=== PATIENT | male | born 1940 | race Caucasian/White ===

== ENCOUNTER 2019-05-27 09:38 | Emergency (ER) | payer BC ==
[2019-05-27 09:46] VITALS: BP 152/59; PULSE 71; TEMP 97.8; BMI 20.8
--- NOTE | 2019-05-27 10:27 | PDOC ---
History of Present Illness - General Chief Complaint: Injury Stated Complaint: HAND INJURY Time Seen by Provider: 05/27/19 09:59 History Source: Patient Exam Limitations: Clinical Condition - History of Present Illness Initial Comments: 05/27/19 11:03 Patient with no significant past medical history not on anticoagulation therapy presents for evaluation of multiple abrasions to right hand status post slip on a curbside bracing himself with his right hand causing multiple abrasions. Patient does not recall last tetanus vaccine. Denies hitting head or loss of consciousness, dizziness. Denies any other symptoms Occurred: reports: just prior to arrival Past History - Past Medical History Allergies/Adverse Reactions: Allergies Allergy/AdvReac Type Severity Reaction Status Date / Time No Known Allergies Allergy Verified 05/27/19 09:41 Home Medications: Ambulatory Orders Diltiazem Cd [Cardizem Cd -] 240 mg PO DAILY 05/21/16 Glipizide 10 mg PO DAILY 05/21/16 Losartan Potassium 100 mg PO DAILY 05/21/16 Simvastatin 40 mg PO HS 05/21/16 Linagliptin [Tradjenta] 1 tab PO DAILY 05/27/19 COPD: No Dialysis: Yes HTN: Yes Hypercholesterolemia: Yes - Psycho Social/Smoking Cessation Hx Smoking History: Unknown if ever smoked Have you smoked in the past 12 months: No Hx Alcohol Use: No Drug/Substance Use Hx: No Review of Systems - Review of Systems Able to Perform ROS?: Yes Is the patient limited Romanian proficient: No Constitutional: No: Malaise, Weakness HEENTM: No: Symptoms Reported Respiratory: No: Symptoms reported Cardiac (ROS): No: Symptoms Reported ABD/GI: No: Nausea, Vomiting Musculoskeletal: Yes: Symptoms Reported, See HPI, Muscle Pain (pal of hand) Integumentary: No: Symptoms Reported Neurological: No: Symptoms reported All Other Systems: Reviewed and Negative *Physical Exam - Vital Signs Last Vital Signs Temp Pulse Resp BP Pulse Ox 97.8 F 71 18 152/59 L 98 05/27/19 09:45 05/27/19 09:45 05/27/19 09:45 05/27/19 09:45 05/27/19 09:45 - Physical Exam Comments: 05/27/19 11:06 GENERAL: Well developed, well nourished. Awake and alert. No acute distress. CARDIOVASCULAR: Regular rate and rhythm. No murmurs, rubs, or gallops. PULMONARY: No evidence of respiratory distress. MUSCULOSKELETAL : mild tenderness over plantar aspect of right hand over multiple abrasions to palm of right hand. No bony deformities SKIN: Warm and dry. Normal capillary refill. Multiple superficial abrasions to right hand NEUROLOGICAL: Alert, awake, appropriate. No motor deficits in the lower extremities. Gait is normal without ataxia. PSYCHIATRIC: Cooperative. Good eye contact. Appropriate mood and affect. General Appearance: Yes: Nourished, Appropriately Dressed. No: Apparent Distress Medical Decision Making - Medical Decision Making 05/27/19 11:05 Patient with no significant past medical history not on anticoagulation therapy presents for evaluation of multiple abrasions to right hand status post slip on a curbside bracing himself with his right hand causing multiple abrasions. Patient does not recall last tetanus vaccine. Denies hitting head or loss of consciousness, dizziness. Denies any other symptoms Exam significant for 1 cm area of abrasion to palmar aspect of hyperthenar of right wrist. Another superficial abrasions to dorsal aspect of PIP joint of fifth and fourth fingers with minimal bleeding. Multiple superficial abrasions to plantar aspect of right hand. Head atraumatic. Wound cleaned with Betadine and bacitracin applied to abrasions. Tetanus vaccine given. Patient stable for discharge with occasional home wound care with dressing changes twice daily and apply home bacitracin. Patient voiced understanding of home wound care and stable for discharge. Discharge - Discharge Information Problems reviewed: Yes Clinical Impression/Diagnosis: Hand abrasion, non-infected Fall Qualifiers: Encounter type: initial encounter Qualified Code(s): W19.XXXA - Unspecified fall, initial encounter Disposition: HOME - Admission No - Follow up/Referral Referrals: Jareth Maher MD [Staff Physician] - - Patient Discharge Instructions Patient Printed Discharge Instructions: DI for Abrasion Additional Instructions: Keep wound clean and dry for the next 24 hours. Apply bacitracin to wound twice a day until healed. Follow-up with primary care as needed. - Post Discharge Activity
[2019-05-27] MEDS ORDERED: DIPHTH,PERTUSS(ACELL),TET 0.5 ML DISP.SYRIN IM ONE ×2 (10:43→10:44)
== END 2019-05-27 11:03 | disposition home or self-care (01) ==
LOC: JERFT 09:38
PROC: 3E0234Z Introduction of Serum, Toxoid and Vaccine into Muscle, Percutaneous Approach (ICD-10-PCS; principal; 2019-05-27)
DX: S60.511A Abrasion of right hand, initial encounter (principal); W18.09XA Striking against other object with subsequent fall, initial encounter; Y93.89 Activity, other specified; Y92.410 Unspecified street and highway as the place of occurrence of the external cause; E11.9 Type 2 diabetes mellitus without complications; I10 Essential (primary) hypertension
CPT/HCPCS: 90471; 90715; 99281-25

== ENCOUNTER 2020-10-16 10:44 | Inpatient (IN) | payer BC ==
[2020-10-16] MEDS ORDERED: LACTATED RINGERS SOLUTION 1000 ML INFUS.BAG IV ONE (13:11)
[2020-10-16 14:00] LABS: BASO % 0.2 % (0-2.0); EOS % 0.6 % (0-4.5); HEMATOCRIT 32.9 % (35.4-49); HEMOGLOBIN 11.8 GM/dL (11.7-16.9); LYMPH % 39.3 % (8-40); MCH 31.5 pg (25.7-33.7); MEAN CELL VOLUME 87.6 fl (80-96); MEAN PLT VOLUME 7.5 fl (7.5-11.1); MONO % 3.8 % (3.8-10.2); NEUT % 56.1 % (42.8-82.8); PLATELET COUNT 152 K/MM3 (134-434); RBC 3.76 M/mm3 (4.00-5.60); RDW 13.3 % (11.9-15.9); WHITE BLOOD COUNT 10.6 K/mm3 (4.0-10.0)
[2020-10-16 14:30] LABS: CHLORIDE 99 mmol/L (98-107); POTASSIUM 3.9 mmol/L (3.5-5.1); SODIUM 133 mmol/L (136-145)
[2020-10-16 14:32] LABS: ALBUMIN 3.8 g/dl (3.4-5.0); ANION GAP 8 MMOL/L (8-16); BLOOD UREA NITROGEN 26.4 mg/dL (7-18); CALCIUM 9.6 mg/dL (8.5-10.1); CO2 26 mmol/L (21-32); GLUCOSE,RANDOM 181 mg/dL (74-106); MAGNESIUM 2.1 mg/dL (1.8-2.4)
[2020-10-16 14:36] LABS: SGOT/AST 44 U/L (15-37); SGPT/ALT 49 U/L (13-61)
[2020-10-16 14:36] LABS: PH,URINE 5.5 (5.0-8.0); URINE APPEARANCE CLEAR; URINE BILIRUBIN NEGATIVE (NEGATIVE); URINE COLOR YELLOW; URINE GLUCOSE (UA) NEGATIVE (NEGATIVE); URINE KETONE 1+ (NEGATIVE); URINE LEUK ESTERASE NEGATIVE (NEGATIVE); URINE NITRITE NEGATIVE (NEGATIVE); URINE PROTEIN TRACE (NEGATIVE); URINE UROBILINOGEN 0.2 mg/dL (0.2-1.0)
[2020-10-16 14:37] LABS: BILIRUBIN,TOTAL 0.7 mg/dL (0.2-1); CREATININE 1.2 mg/dL (0.55-1.3); TOT PROT 7.1 g/dl (6.4-8.2)
[2020-10-16 14:39] LABS: ALK PHOS 77 U/L (45-117)
[2020-10-16] MEDS ORDERED: ACETAMINOPHEN 325 MG TABLET (FP) PO PRN (16:30)
[2020-10-16] MEDS ORDERED: LOSARTAN POTASSIUM 50 MG TABLET ONE (16:33)
[2020-10-16] MEDS: LOSARTAN POTASSIUM 50 MG TABLET PO SCH (16:37)
[2020-10-16] MEDS: INSULIN SLIDING SCALE (NOVOLOG) 1 VIAL SQ SCH (16:56)
[2020-10-16] MEDS ORDERED: hydrALAZINE HCL 25 MG TABLET (FP) PO ONE (20:17)
[2020-10-16] MEDS ORDERED: hydrALAZINE HCL 25 MG TABLET (FP) ONE (21:09)
[2020-10-16] MEDS ORDERED: ATORVASTATIN CA 20 MG TABLET (FP) ONE (21:10)
[2020-10-16] MEDS ORDERED: ATORVASTATIN CA 20 MG TABLET (FP) PO SCH (22:00)
[2020-10-17 00:39] VITALS: BMI 20.5
[2020-10-17] MEDS: INSULIN SLIDING SCALE (NOVOLOG) 1 VIAL SQ SCH (07:19)
[2020-10-17 07:32] LABS: BASO % 0.3 % (0-2.0); EOS % 1.8 % (0-4.5); HEMOGLOBIN 13.7 GM/dL (11.7-16.9); LYMPH % 49.7 % (8-40); MCH 31.4 pg (25.7-33.7); MCHC 36.1 g/dl (32.0-35.9); MEAN PLT VOLUME 7.4 fl (7.5-11.1); MONO % 4.6 % (3.8-10.2); NEUT % 43.6 % (42.8-82.8); PLATELET COUNT 195 K/MM3 (134-434); RBC 4.36 M/mm3 (4.00-5.60); RDW 13.4 % (11.9-15.9); WHITE BLOOD COUNT 11.5 K/mm3 (4.0-10.0)
[2020-10-17 07:56] LABS: POTASSIUM 3.5 mmol/L (3.5-5.1)
[2020-10-17 08:03] LABS: CALCIUM 8.9 mg/dL (8.5-10.1)
[2020-10-17 08:04] LABS: ALBUMIN 3.5 g/dl (3.4-5.0)
[2020-10-17 08:06] LABS: BILIRUBIN,TOTAL 0.7 mg/dL (0.2-1); TOT PROT 6.4 g/dl (6.4-8.2)
[2020-10-17 08:07] LABS: CREATININE 1.2 mg/dL (0.55-1.3)
[2020-10-17] MEDS: LOSARTAN POTASSIUM 50 MG TABLET PO SCH (09:10)
[2020-10-17] MEDS ORDERED: ENOXAPARIN NA (PORCINE) 40 MG/0.4 ML DISP.SYRIN SQ SCH (10:00)
[2020-10-17] MEDS ORDERED: amLODIPine BESYLATE 2.5 MG TABLET (FP) PO SCH (11:45)
[2020-10-17 15:39] VITALS: BP 151/70; PULSE 82; TEMP 97.8
== END 2020-10-17 17:30 | disposition home or self-care (01) | DRG 866 ==
LOC: JER 10:44 → JERBED 17:07 → J4W 23:28
PROVIDERS: ADMIT Internal Medicine; ATTEND Internal Medicine
DX: T88.1XXA Other complications following immunization, not elsewhere classified, initial encounter (principal); R42 Dizziness and giddiness; R55 Syncope and collapse; R53.83 Other fatigue; R00.1 Bradycardia, unspecified; E86.0 Dehydration; I10 Essential (primary) hypertension; E11.9 Type 2 diabetes mellitus without complications; Z79.84 Long term (current) use of oral hypoglycemic drugs; E78.5 Hyperlipidemia, unspecified; Y84.8 Other medical procedures as the cause of abnormal reaction of the patient, or of later complication, without mention of misadventure at the time of the procedure
CPT/HCPCS: 36415; 71045-TC-FY; 80053; 80061; 81003; 82550; 82962; 83036; 83721; 83735; 84443; 84484; 85025; 87086; 93005; 93010; 93880-TC; 99285-25; C9803; U0003

== ENCOUNTER 2021-04-06 15:21 | Inpatient (IN) | payer BC, OTHER ==
[2021-04-06] MEDS ORDERED: LACTATED RINGERS SOLUTION 1,000 ML IV STA (16:48)
[2021-04-06] MEDS ORDERED: LOPERAMIDE HCL 1 MG/5 ML UNIT DOSE CUP PO ONE (16:55)
[2021-04-06] MEDS ORDERED: LOPERAMIDE HCL 1 MG/7.5 ML LIQUID PO ONE (17:45)
[2021-04-06 17:46] LABS: BASO % 0.5 % (0-2.0); EOS % 0.1 % (0-4.5); HEMATOCRIT 35.8 % (35.4-49); HEMOGLOBIN 12.6 GM/dL (11.7-16.9); LYMPH % 39.1 % (8-40); MCH 30.8 pg (25.7-33.7); MCHC 35.3 g/dl (32.0-35.9); MEAN CELL VOLUME 87.2 fl (80-96); MEAN PLT VOLUME 7.4 fl (7.5-11.1); MONO % 4.8 % (3.8-10.2); NEUT % 55.5 % (42.8-82.8); PLATELET COUNT 211 10^3/uL (134-434); RDW 13.6 % (11.9-15.9); WHITE BLOOD COUNT 18.4 K/mm3 (4.0-10.0)
[2021-04-06 18:07] LABS: CALCIUM 9.2 mg/dL (8.5-10.1)
[2021-04-06 18:08] LABS: BLOOD UREA NITROGEN 38.3 mg/dL (7-18)
[2021-04-06 18:11] LABS: CREATININE 1.7 mg/dL (0.55-1.3)
[2021-04-06 18:13] LABS: BILIRUBIN,TOTAL 1.1 mg/dL (0.2-1); TOT PROT 6.9 g/dl (6.4-8.2)
[2021-04-06] MEDS ORDERED: LACTATED RINGERS SOLUTION 1000 ML INFUS.BAG IV ONE (18:41)
[2021-04-06] MEDS ORDERED: POTASSIUM CHLORIDE TABS 20 MEQ TABLET.ER (FP) PO ONE ×2 (18:41→19:09)
[2021-04-06] MEDS ORDERED: MEMANTINE HCL 10 MG TABLET (FP) PO ONE (20:00)
[2021-04-06 20:48] LABS: EPI CELLS 1 /uL (0-25.1); HYALINE CASTS 0 /uL (0-3.1); PH,URINE 5.5 (5.0-8.0); URINE APPEARANCE CLEAR; URINE BACTERIA 1 /uL (0-1359); URINE BILIRUBIN NEGATIVE (NEGATIVE); URINE COLOR YELLOW; URINE GLUCOSE (UA) 1+ (NEGATIVE); URINE KETONE NEGATIVE (NEGATIVE); URINE LEUK ESTERASE NEGATIVE (NEGATIVE); URINE NITRITE NEGATIVE (NEGATIVE); URINE PROTEIN NEGATIVE (NEGATIVE); URINE RBC 1 /uL (0-23.9); URINE UROBILINOGEN 0.2 mg/dL (0.2-1.0); URINE WBC 3 /uL (0-25.8)
[2021-04-06] MEDS ORDERED: CEFTRIAXONE 1,000 MG in DEXTROSE 5%-WATER - 50 ML IVPB ONE (23:25)
[2021-04-06] MEDS ORDERED: DEXTROSE 5%-0.45% SALINE 1,000 ML IV SCH (23:30)
[2021-04-06] MEDS ORDERED: CEFTRIAXONE 1 GM/50 ML BAG ONE (23:35)
[2021-04-06] MEDS ORDERED: CEFTRIAXONE 1 GM in DEXTROSE 5%-WATER - 50 ML IVPB ONE (23:44)
[2021-04-07 06:24] LABS: HEMATOCRIT 34.1 % (35.4-49); HEMOGLOBIN 12.2 GM/dL (11.7-16.9); MCH 31.4 pg (25.7-33.7); MCHC 35.9 g/dl (32.0-35.9); MEAN CELL VOLUME 87.5 fl (80-96); MEAN PLT VOLUME 7.7 fl (7.5-11.1); PLATELET COUNT 188 10^3/uL (134-434); RDW 13.4 % (11.9-15.9); WHITE BLOOD COUNT 13.7 K/mm3 (4.0-10.0)
[2021-04-07 06:36] LABS: ALBUMIN 3.3 g/dl (3.4-5.0); BLOOD UREA NITROGEN 25.4 mg/dL (7-18); CALCIUM 8.6 mg/dL (8.5-10.1); MAGNESIUM 2.2 mg/dL (1.8-2.4)
[2021-04-07 06:40] LABS: CREATININE 1.2 mg/dL (0.55-1.3)
[2021-04-07 06:41] LABS: BILIRUBIN,TOTAL 0.6 mg/dL (0.2-1); TOT PROT 5.8 g/dl (6.4-8.2)
[2021-04-07 09:23] LABS: ANISOCYTOSIS 1+; MACROCYTOSIS 0; PLATELET ESTIMATE NORMAL
[2021-04-07] MEDS: MEMANTINE HCL 10 MG TABLET (FP) PO SCH (10:05)
[2021-04-07] MEDS: HEPARIN NA (PORCINE) 5,000 UNITS/ML 1ML VIAL SQ SCH (10:05)
[2021-04-07] MEDS: LOSARTAN POTASSIUM 50 MG TABLET PO SCH (10:19)
[2021-04-07] MEDS: amLODIPine BESYLATE 5 MG TABLET (FP) PO SCH (10:20)
[2021-04-07] MEDS ORDERED: HEPARIN NA (PORCINE) 5,000 UNITS/ML 1ML VIAL ONE (10:21)
[2021-04-07] MEDS ORDERED: CEFTRIAXONE 1 GM/50 ML BAG ONE (10:22)
[2021-04-07] MEDS ORDERED: DEXTROSE 5%-0.45% SALINE 1,000 ML with POTASSIUM CHLORIDE 20 MEQ IV SCH (10:37)
[2021-04-07] MEDS: CEFTRIAXONE 1 GM in DEXTROSE 5%-WATER - 50 ML IVPB SCH (10:37)
[2021-04-07] MEDS: KCL 10 MEQ IVPB 10 MEQ/100 ML INFUS.BAG IVPB SCH ×2 (11:50→12:45)
[2021-04-07] MEDS ORDERED: KCL 10 MEQ IVPB 10 MEQ/100 ML INFUS.BAG IVPB ONE ×2 (12:08→13:37)
[2021-04-07] MEDS: D5-1/2NS+20 MEQ KCL - 20 MEQ/1,000 ML INFUS.BAG IV SCH (16:01)
[2021-04-08] MEDS: MEMANTINE HCL 10 MG TABLET (FP) PO SCH ×3 (00:28→21:33)
[2021-04-08] MEDS: HEPARIN NA (PORCINE) 5,000 UNITS/ML 1ML VIAL SQ SCH ×3 (00:28→21:33)
[2021-04-08] MEDS: ATORVASTATIN CA 20 MG TABLET (FP) PO SCH ×2 (00:28→21:33)
[2021-04-08] MEDS: D5-1/2NS+20 MEQ KCL - 20 MEQ/1,000 ML INFUS.BAG IV SCH ×3 (06:27→21:52)
[2021-04-08] MEDS ORDERED: DEXTROSE 5%-WATER - 50 ML IVPB ONE (09:37)
[2021-04-08] MEDS ORDERED: cefTRIAXone SODIUM 1 GM VIAL ONE (09:37)
[2021-04-08] MEDS: CEFTRIAXONE 1 GM in DEXTROSE 5%-WATER - 50 ML IVPB SCH (09:44)
[2021-04-08] MEDS: LOSARTAN POTASSIUM 50 MG TABLET PO SCH (11:47)
[2021-04-08] MEDS: amLODIPine BESYLATE 5 MG TABLET (FP) PO SCH (11:48)
[2021-04-08 22:43] VITALS: PULSE 66
[2021-04-09] VITALS: BMI 20.2
[2021-04-09 09:06] LABS: HEMATOCRIT 31.7 % (35.4-49); HEMOGLOBIN 11.4 GM/dL (11.7-16.9); MCH 31.7 pg (25.7-33.7); MEAN PLT VOLUME 7.5 fl (7.5-11.1); PLATELET COUNT 182 10^3/uL (134-434); RDW 13.5 % (11.9-15.9); WHITE BLOOD COUNT 8.1 K/mm3 (4.0-10.0)
[2021-04-09 09:15] VITALS: BP 155/69; TEMP 98.2
[2021-04-09] MEDS ORDERED: DEXTROSE 5%-WATER - 50 ML IVPB ONE (09:19)
[2021-04-09] MEDS ORDERED: cefTRIAXone SODIUM 1 GM VIAL ONE (09:19)
[2021-04-09] MEDS: LOSARTAN POTASSIUM 50 MG TABLET PO SCH (09:23)
[2021-04-09] MEDS: amLODIPine BESYLATE 5 MG TABLET (FP) PO SCH (09:23)
[2021-04-09] MEDS: MEMANTINE HCL 10 MG TABLET (FP) PO SCH (09:23)
[2021-04-09] MEDS: HEPARIN NA (PORCINE) 5,000 UNITS/ML 1ML VIAL SQ SCH (09:23)
[2021-04-09] MEDS: CEFTRIAXONE 1 GM in DEXTROSE 5%-WATER - 50 ML IVPB SCH (09:23)
[2021-04-09 09:31] LABS: ALBUMIN 2.8 g/dl (3.4-5.0); BLOOD UREA NITROGEN 15.8 mg/dL (7-18); CALCIUM 8.1 mg/dL (8.5-10.1)
[2021-04-09 09:34] LABS: CREATININE 1.1 mg/dL (0.55-1.3)
[2021-04-09 09:35] LABS: BILIRUBIN,TOTAL 0.4 mg/dL (0.2-1); TOT PROT 5.1 g/dl (6.4-8.2)
[2021-04-09] MEDS: D5-1/2NS+20 MEQ KCL - 20 MEQ/1,000 ML INFUS.BAG IV SCH (11:24)
[2021-04-09] MEDS ORDERED: POTASSIUM CHLORIDE TABS 20 MEQ TABLET.ER (FP) PO ONE (11:45)
[2021-04-09 14:20] LABS: ANISOCYTOSIS 0; MACROCYTOSIS 0; PLATELET ESTIMATE NORMAL
== END 2021-04-09 14:34 | disposition home or self-care (01) | DRG 391 ==
LOC: JER 15:21 → JERBED 23:40 → J6S 04-07 23:02
PROVIDERS: ADMIT Internal Medicine; ATTEND Internal Medicine
DX: K52.9 Noninfective gastroenteritis and colitis, unspecified (principal); E43 Unspecified severe protein-calorie malnutrition; N17.9 Acute kidney failure, unspecified; J98.11 Atelectasis; I10 Essential (primary) hypertension; E11.9 Type 2 diabetes mellitus without complications; Z68.20 Body mass index [BMI] 20.0-20.9, adult; R63.0 Anorexia; E86.0 Dehydration; E78.5 Hyperlipidemia, unspecified; G30.9 Alzheimer's disease, unspecified; F02.80 Dementia in other diseases classified elsewhere, unspecified severity, without behavioral disturbance, psychotic disturbance, mood disturbance, and anxiety; K59.09 Other constipation
CPT/HCPCS: 36415; 71045-TC-FY; 74176-TC; 80053; 81003; 82962; 83605; 83735; 85025; 86140; 87040; 87045; 87046; 87086; 87324; 87449; 93005; 93010; 99285-25; C9803; J1644; U0003; U0005

== ENCOUNTER 2021-10-06 11:53 | Emergency (ER) | payer BC, OTHER ==
[2021-10-06 12:01] VITALS: BP 121/58; PULSE 88; TEMP 97.7; BMI 21.7
[2021-10-07 15:07] LABS: SARS-CoV-2 NAA Detected (Not Detected)
== END 2021-10-06 12:53 | disposition home or self-care (01) ==
LOC: JER 11:53 → JERFT 11:53
DX: M79.10 Myalgia, unspecified site (principal); Z11.52 Encounter for screening for COVID-19
CPT/HCPCS: 99283-25; C9803; U0003; U0005

== ENCOUNTER 2021-10-07 16:04 | Emergency (ER) | payer BC ==
[2021-10-07 16:14] VITALS: BP 109/60; PULSE 78; TEMP 98.2; BMI 15.5
[2021-10-07] MEDS ORDERED: SOTROVIMAB 500 MG in SODIUM CHLORIDE 100 ML IVPB ONE (16:14)
== END 2021-10-07 20:58 | disposition home or self-care (01) ==
LOC: JCOVINFU 16:04
DX: U07.1 COVID-19 (principal)
CPT/HCPCS: 99284-25; M0247; Q0247

== ENCOUNTER 2021-11-26 16:27 | Emergency (ER) | payer BC ==
[2021-11-26 16:57] VITALS: BP 111/54; PULSE 76; TEMP 97.9; BMI 19.9
[2021-11-26] MEDS ORDERED: SODIUM CHLORIDE 0.9% 500 ML INFUS.BAG IV ONE (18:33)
[2021-11-26 19:50] LABS: BASO % 0.1 % (0-2.0); EOS % 0.4 % (0-4.5); HEMATOCRIT 39.4 % (35.4-49); HEMOGLOBIN 13.4 GM/dL (11.7-16.9); LYMPH % 34.8 % (8-40); MCH 29.9 pg (25.7-33.7); MCHC 33.9 g/dl (32.0-35.9); MEAN CELL VOLUME 88.1 fl (80-96); MEAN PLT VOLUME 8.6 fl (7.5-11.1); MONO % 4.9 % (3.8-10.2); NEUT % 59.8 % (42.8-82.8); PLATELET COUNT 233 10^3/uL (134-434); RBC 4.47 M/mm3 (4.00-5.60); RDW 14.4 % (11.9-15.9); WHITE BLOOD COUNT 15.6 K/mm3 (4.0-10.0)
[2021-11-26 20:05] LABS: CALCIUM 9.8 mg/dL (8.5-10.1)
[2021-11-26 20:06] LABS: ALBUMIN 3.4 g/dl (3.4-5.0)
[2021-11-26 20:08] LABS: CREATININE 1.3 mg/dL (0.55-1.3)
[2021-11-26 20:10] LABS: TOT PROT 7.1 g/dl (6.4-8.2)
[2021-11-26] MEDS ORDERED: MEMANTINE HCL 5 MG TABLET (UD) PO ONE (22:03)
[2021-11-26] MEDS ORDERED: LACTULOSE 20 GM/30 ML UDC (FOR ORAL USE ONLY) PO ONE (22:41)
[2021-11-26] MEDS ORDERED: SODIUM PHOSPHATE/NA BIPHOS 133 ML ENEMA PR ONE ×2 (22:41→23:21)
[2021-11-26 22:50] LABS: EPI CELLS 5 /uL (0-25.1); HYALINE CASTS 2 /uL (0-3.1); PH,URINE 5.5 (5.0-8.0); URINE APPEARANCE CLOUDY; URINE BACTERIA 0 /uL (0-1359); URINE BILIRUBIN NEGATIVE (NEGATIVE); URINE COLOR YELLOW; URINE GLUCOSE (UA) TRACE (NEGATIVE); URINE KETONE 1+ (NEGATIVE); URINE LEUK ESTERASE NEGATIVE (NEGATIVE); URINE NITRITE NEGATIVE (NEGATIVE); URINE PROTEIN 1+ (NEGATIVE); URINE RBC 27 /uL (0-23.9); URINE WBC 7 /uL (0-25.8)
[2021-11-26] MEDS ORDERED: LACTULOSE 20 GM/30 ML UDC (FOR ORAL USE ONLY) ONE (23:01)
== END 2021-11-27 00:20 | disposition home or self-care (01) ==
LOC: JER 16:27
DX: K59.00 Constipation, unspecified (principal); E86.0 Dehydration
CPT/HCPCS: 36415; 71046-TC-FY; 74177-TC; 80053; 81003; 83690; 84484; 85025; 87086; 87186; 93005; 93010; 99285-25; Q9967

== ENCOUNTER 2021-11-29 20:43 | Inpatient (IN) | payer BC ==
[2021-11-29] MEDS ORDERED: SODIUM CHLORIDE 500 ML IV STA (21:07)
[2021-11-29 23:06] LABS: BASO % 0.3 % (0-2.0); EOS % 1.1 % (0-4.5); HEMATOCRIT 36.1 % (35.4-49); HEMOGLOBIN 12.3 GM/dL (11.7-16.9); LYMPH % 41.1 % (8-40); MCH 29.9 pg (25.7-33.7); MCHC 34.2 g/dl (32.0-35.9); MEAN CELL VOLUME 87.4 fl (80-96); MEAN PLT VOLUME 7.2 fl (7.5-11.1); MONO % 4.8 % (3.8-10.2); NEUT % 52.7 % (42.8-82.8); PLATELET COUNT 233 10^3/uL (134-434); RBC 4.13 M/mm3 (4.00-5.60); RDW 14.2 % (11.9-15.9); WHITE BLOOD COUNT 13.3 K/mm3 (4.0-10.0)
[2021-11-29 23:26] LABS: INR 1.23 (0.83-1.09); PROTHROMBIN TIME (PATIENT) 14.2 SEC (9.7-13.0)
[2021-11-29 23:35] LABS: BLOOD UREA NITROGEN 31.4 mg/dL (7-18)
[2021-11-29 23:38] LABS: ALBUMIN 2.5 g/dl (3.4-5.0); CREATININE 1.4 mg/dL (0.55-1.3)
[2021-11-29 23:41] LABS: BILIRUBIN,TOTAL 0.5 mg/dL (0.2-1)
[2021-11-29] MEDS ORDERED: POTASSIUM CHLORIDE TABS 20 MEQ TABLET.ER (FP) PO ONE (23:44)
[2021-11-30] MEDS ORDERED: POTASSIUM CHLORIDE TABS 20 MEQ TABLET.ER (FP) PO ONE (00:20)
[2021-11-30] MEDS: SODIUM CHLORIDE 1,000 ML IV SCH ×2 (01:33→10:21)
[2021-11-30 06:46] VITALS: BMI 19.3
[2021-11-30] MEDS ORDERED: glipiZIDE 5 MG TABLET (FP) PO SCH (10:00)
[2021-11-30] MEDS: MEMANTINE HCL 10 MG TABLET (FP) PO SCH ×2 (10:19→21:17)
[2021-11-30 10:39] LABS: BASO % 0.3 % (0-2.0); EOS % 1.3 % (0-4.5); HEMATOCRIT 34.8 % (35.4-49); HEMOGLOBIN 11.7 GM/dL (11.7-16.9); LYMPH % 49.4 % (8-40); MCH 29.7 pg (25.7-33.7); MCHC 33.7 g/dl (32.0-35.9); MEAN CELL VOLUME 88.2 fl (80-96); MEAN PLT VOLUME 7.5 fl (7.5-11.1); MONO % 4.1 % (3.8-10.2); NEUT % 44.9 % (42.8-82.8); PLATELET COUNT 237 10^3/uL (134-434); RBC 3.95 M/mm3 (4.00-5.60); RDW 14.2 % (11.9-15.9)
[2021-11-30 11:02] LABS: ALBUMIN 2.4 g/dl (3.4-5.0); BLOOD UREA NITROGEN 24.3 mg/dL (7-18); CALCIUM 8.7 mg/dL (8.5-10.1)
[2021-11-30 11:05] LABS: CREATININE 1.1 mg/dL (0.55-1.3)
[2021-11-30 11:07] LABS: BILIRUBIN,TOTAL 0.6 mg/dL (0.2-1); TOT PROT 5.6 g/dl (6.4-8.2)
[2021-11-30] MEDS: INSULIN SLIDING SCALE (NOVOLOG) 1 VIAL SQ SCH ×2 (13:29→18:00)
[2021-11-30] MEDS: POTASSIUM CHLORIDE 10 MEQ in SODIUM CHLORIDE 1,000 ML IV SCH (18:07)
[2021-11-30] MEDS: ATORVASTATIN CA 20 MG TABLET (FP) PO SCH (21:17)
[2021-11-30] MEDS: MIRTAZAPINE 15 MG TABLET (FP) PO SCH (21:17)
[2021-11-30 22:05] LABS: URINE APPEARANCE CLEAR; URINE BILIRUBIN NEGATIVE (NEGATIVE); URINE COLOR YELLOW; URINE GLUCOSE (UA) NEGATIVE (NEGATIVE); URINE KETONE NEGATIVE (NEGATIVE); URINE LEUK ESTERASE NEGATIVE (NEGATIVE); URINE NITRITE NEGATIVE (NEGATIVE); URINE PROTEIN NEGATIVE (NEGATIVE)
[2021-12-01] MEDS: INSULIN SLIDING SCALE (NOVOLOG) 1 VIAL SQ SCH ×3 (06:22→17:38)
[2021-12-01] MEDS: glipiZIDE 5 MG TABLET (FP) PO SCH ×2 (06:23→06:33)
[2021-12-01] MEDS ORDERED: metoPROLOL SUCCINATE 25 MG TAB.SR.24H (FP) PO SCH (10:00)
[2021-12-01] MEDS: metoPROLOL SUCCINATE 25 MG TAB.SR.24H (FP) PO SCH (10:29)
[2021-12-01] MEDS: MEMANTINE HCL 10 MG TABLET (FP) PO SCH ×2 (10:29→21:53)
[2021-12-01] MEDS: POTASSIUM CHLORIDE 10 MEQ in SODIUM CHLORIDE 1,000 ML IV SCH (12:16)
[2021-12-01] MEDS: ATORVASTATIN CA 20 MG TABLET (FP) PO SCH (21:53)
[2021-12-01] MEDS: MIRTAZAPINE 15 MG TABLET (FP) PO SCH (21:53)
[2021-12-02] MEDS: POTASSIUM CHLORIDE 10 MEQ in SODIUM CHLORIDE 1,000 ML IV SCH ×3 (02:00→19:00)
[2021-12-02] MEDS: INSULIN SLIDING SCALE (NOVOLOG) 1 VIAL SQ SCH ×3 (06:18→17:36)
[2021-12-02] MEDS: glipiZIDE 5 MG TABLET (FP) PO SCH (06:18)
[2021-12-02] MEDS: metoPROLOL SUCCINATE 25 MG TAB.SR.24H (FP) PO SCH (09:54)
[2021-12-02] MEDS: MEMANTINE HCL 10 MG TABLET (FP) PO SCH ×2 (09:54→21:21)
[2021-12-02 09:56] LABS: HEMATOCRIT 32.3 % (35.4-49); HEMOGLOBIN 11.1 GM/dL (11.7-16.9); MCH 29.9 pg (25.7-33.7); MCHC 34.5 g/dl (32.0-35.9); MEAN CELL VOLUME 86.9 fl (80-96); MEAN PLT VOLUME 7.7 fl (7.5-11.1); PLATELET COUNT 247 10^3/uL (134-434); RBC 3.72 M/mm3 (4.00-5.60); RDW 14.2 % (11.9-15.9); WHITE BLOOD COUNT 10.3 K/mm3 (4.0-10.0)
[2021-12-02 10:18] LABS: BLOOD UREA NITROGEN 15.9 mg/dL (7-18); CALCIUM 8.4 mg/dL (8.5-10.1)
[2021-12-02 10:22] LABS: CREATININE 1.1 mg/dL (0.55-1.3)
[2021-12-02] MEDS ORDERED: SODIUM PHOSPHATE/NA BIPHOS 133 ML ENEMA PR PRN (12:22)
[2021-12-02] MEDS ORDERED: SENNOSIDES 8.6MG TABLET (FP) PO PRN (12:22)
[2021-12-02] MEDS: POLYETHYLENE GLYCOL (HEALTHYLAX) 3350 17 GM PACKET PO SCH (13:59)
[2021-12-02] MEDS: ATORVASTATIN CA 20 MG TABLET (FP) PO SCH (21:21)
[2021-12-02] MEDS: MIRTAZAPINE 15 MG TABLET (FP) PO SCH (21:21)
[2021-12-03] MEDS: POTASSIUM CHLORIDE 10 MEQ in SODIUM CHLORIDE 1,000 ML IV SCH ×2 (01:43→20:23)
[2021-12-03] MEDS: INSULIN SLIDING SCALE (NOVOLOG) 1 VIAL SQ SCH ×3 (06:04→17:21)
[2021-12-03] MEDS: POLYETHYLENE GLYCOL (HEALTHYLAX) 3350 17 GM PACKET PO SCH (09:11)
[2021-12-03] MEDS: metoPROLOL SUCCINATE 25 MG TAB.SR.24H (FP) PO SCH (09:11)
[2021-12-03] MEDS: MEMANTINE HCL 10 MG TABLET (FP) PO SCH ×2 (09:11→21:35)
[2021-12-03] MEDS: ATORVASTATIN CA 20 MG TABLET (FP) PO SCH (21:35)
[2021-12-03] MEDS: MIRTAZAPINE 15 MG TABLET (FP) PO SCH (21:35)
[2021-12-04] MEDS: POTASSIUM CHLORIDE 10 MEQ in SODIUM CHLORIDE 1,000 ML IV SCH ×2 (05:00→14:33)
[2021-12-04] MEDS: INSULIN SLIDING SCALE (NOVOLOG) 1 VIAL SQ SCH ×3 (06:19→18:35)
[2021-12-04] MEDS: MEMANTINE HCL 10 MG TABLET (FP) PO SCH ×2 (10:44→21:14)
[2021-12-04] MEDS: metoPROLOL SUCCINATE 25 MG TAB.SR.24H (FP) PO SCH (10:44)
[2021-12-04] MEDS: POLYETHYLENE GLYCOL (HEALTHYLAX) 3350 17 GM PACKET PO SCH (10:45)
[2021-12-04] MEDS ORDERED: PROPOFOL 20 ML ONE (14:42)
[2021-12-04] MEDS ORDERED: MINERAL OIL 25 ML OIL TP ONE ×2 (15:00→16:15)
[2021-12-04] MEDS ORDERED: BUPIVACAINE HCL/PF 0.5% (5MG/ML) 10 ML VIAL ONE ×2 (15:10→15:13)
[2021-12-04] MEDS ORDERED: GENTAMICIN SO4 80 MG/2 ML VIAL ONE (15:10)
[2021-12-04] MEDS ORDERED: LIDOCAINE HCL 1% EPINEPHRINE 1:200,000 30 ML VIAL (PF) ONE (15:10)
[2021-12-04] MEDS ORDERED: BUPIVACAINE HCL/PF 0.5% (5MG/ML) 10 ML VIAL IJ ONE (15:37)
[2021-12-04] MEDS ORDERED: LIDOCAINE HCL/EPINEPHRINE/PF 10 ML VIAL NR ONE (15:37)
[2021-12-04] MEDS ORDERED: ceFAZolin 2 GRAM PREMIX BAG IVPB ONE (15:40)
[2021-12-04] MEDS ORDERED: BACITRACIN 15 GM TUBE TOPICAL OINTMENT ONE (16:50)
[2021-12-04] MEDS ORDERED: ONDANSETRON 4 MG/2 ML VIAL ONE (16:53)
[2021-12-04] MEDS ORDERED: LIDOCAINE HCL/PF 2% SDV 5ML VIAL ONE (16:53)
[2021-12-04] MEDS ORDERED: ONDANSETRON 4 MG/2 ML VIAL IVPUSH PRN ×2 (16:59→17:24)
[2021-12-04] MEDS ORDERED: LACTATED RINGERS SOLUTION 1,000 ML IV SCH (17:00)
[2021-12-04] MEDS ORDERED: SENNOSIDES 8.6MG TABLET (FP) PO PRN (17:24)
[2021-12-04] MEDS ORDERED: SODIUM PHOSPHATE/NA BIPHOS 133 ML ENEMA PR PRN (17:24)
[2021-12-04] MEDS ORDERED: traMADol HCL 50 MG TABLET PO PRN (17:24)
[2021-12-04] MEDS: LACTATED RINGERS SOLUTION 1,000 ML IV SCH ×2 (18:08→18:36)
[2021-12-04] MEDS: ATORVASTATIN CA 20 MG TABLET (FP) PO SCH (21:13)
[2021-12-04] MEDS: MIRTAZAPINE 15 MG TABLET (FP) PO SCH (21:14)
[2021-12-04] MEDS ORDERED: POTASSIUM CHLORIDE 10 MEQ in SODIUM CHLORIDE 1,000 ML IV SCH (22:00)
[2021-12-04] MEDS ORDERED: ACETAMINOPHEN 500 MG TABLET (FP) PO PRN (23:00)
[2021-12-05] MEDS: INSULIN SLIDING SCALE (NOVOLOG) 1 VIAL SQ SCH ×3 (06:10→16:30)
[2021-12-05 08:43] LABS: BASO % 0.4 % (0-2.0); EOS % 0.1 % (0-4.5); HEMOGLOBIN 10.3 GM/dL (11.7-16.9); LYMPH % 38.5 % (8-40); MCH 29.7 pg (25.7-33.7); MCHC 34.3 g/dl (32.0-35.9); MEAN CELL VOLUME 86.6 fl (80-96); MEAN PLT VOLUME 7.2 fl (7.5-11.1); MONO % 2.6 % (3.8-10.2); NEUT % 58.4 % (42.8-82.8); PLATELET COUNT 261 10^3/uL (134-434); RBC 3.47 M/mm3 (4.00-5.60); RDW 13.7 % (11.9-15.9); WHITE BLOOD COUNT 11.6 K/mm3 (4.0-10.0)
[2021-12-05 08:50] LABS: BLOOD UREA NITROGEN 23.4 mg/dL (7-18); CALCIUM 8.6 mg/dL (8.5-10.1)
[2021-12-05 08:51] LABS: ALBUMIN 2.1 g/dl (3.4-5.0)
[2021-12-05 08:54] LABS: CREATININE 1.1 mg/dL (0.55-1.3)
[2021-12-05 08:56] LABS: BILIRUBIN,TOTAL 0.4 mg/dL (0.2-1)
[2021-12-05] MEDS: MEMANTINE HCL 10 MG TABLET (FP) PO SCH ×2 (10:29→22:50)
[2021-12-05] MEDS: metoPROLOL SUCCINATE 25 MG TAB.SR.24H (FP) PO SCH (10:29)
[2021-12-05] MEDS: POLYETHYLENE GLYCOL (HEALTHYLAX) 3350 17 GM PACKET PO SCH (10:29)
[2021-12-05] MEDS ORDERED: APIXABAN 5 MG TABLET PO SCH (22:00)
[2021-12-05] MEDS: APIXABAN 2.5 MG TABLET PO SCH (22:50)
[2021-12-05] MEDS: ATORVASTATIN CA 20 MG TABLET (FP) PO SCH (22:50)
[2021-12-05] MEDS: MIRTAZAPINE 15 MG TABLET (FP) PO SCH (22:50)
[2021-12-06] MEDS: INSULIN SLIDING SCALE (NOVOLOG) 1 VIAL SQ SCH ×2 (06:23→12:31)
[2021-12-06] MEDS: POLYETHYLENE GLYCOL (HEALTHYLAX) 3350 17 GM PACKET PO SCH (09:32)
[2021-12-06] MEDS: MEMANTINE HCL 10 MG TABLET (FP) PO SCH (09:32)
[2021-12-06] MEDS: APIXABAN 2.5 MG TABLET PO SCH (09:32)
[2021-12-06] MEDS: metoPROLOL SUCCINATE 25 MG TAB.SR.24H (FP) PO SCH (09:32)
[2021-12-06 11:02] VITALS: BP 147/67; PULSE 61; TEMP 97.8
== END 2021-12-06 17:05 | disposition home or self-care (01) | DRG 577 ==
LOC: JER 20:43 → JERBED 22:36 → OBSVTOIN 11-30 08:00 → J4W 11-30 08:19
PROVIDERS: ADMIT Internal Medicine; ATTEND Internal Medicine
PROC: 0JB00ZZ Excision of Scalp Subcutaneous Tissue and Fascia, Open Approach (ICD-10-PCS; principal; 2021-12-04 15:00)
PROC: 0HR1XJ3 Replacement of Face Skin with Synthetic Substitute, Full Thickness, External Approach (ICD-10-PCS; 2021-12-04 15:00)
DX: C44.329 Squamous cell carcinoma of skin of other parts of face (principal); N17.9 Acute kidney failure, unspecified; I48.92 Unspecified atrial flutter; I10 Essential (primary) hypertension; E78.5 Hyperlipidemia, unspecified; E11.9 Type 2 diabetes mellitus without complications; Z79.84 Long term (current) use of oral hypoglycemic drugs; G30.9 Alzheimer's disease, unspecified; F02.80 Dementia in other diseases classified elsewhere, unspecified severity, without behavioral disturbance, psychotic disturbance, mood disturbance, and anxiety; E86.0 Dehydration; Z28.311 Partially vaccinated for COVID-19; I95.1 Orthostatic hypotension; L98.9 Disorder of the skin and subcutaneous tissue, unspecified; I48.0 Paroxysmal atrial fibrillation
CPT/HCPCS: 36415; 70450-TC; 70486-TC; 71046-TC-FY; 72125-TC; 72170-TC-FY; 80048; 80053; 80061; 81003; 82962; 84443; 84484; 85025; 85027; 85610; 85730; 86850; 86900; 86901; 88305-TC; 93005; 93010; 93306-TC; 94760; 97116-GP; 97162-GP; 99285-25; C9803-CS; G0378; U0003; U0005

== ENCOUNTER 2022-02-25 04:27 | Day surgery (SDC) | payer BC ==
[2022-02-19 16:01] VITALS: BMI 19.2
[2022-02-25] MEDS ORDERED: LIDOCAINE 1%/EPI 1:100000 (20 ML MULTI DOSE VIAL) ONE (14:06)
[2022-02-25] MEDS ORDERED: LIDOCAINE 1%/EPI 1:100000 (20 ML MULTI DOSE VIAL) IJ ONE ×4 (14:24→14:56)
[2022-02-25] MEDS ORDERED: BUPIVACAINE HCL/PF 0.25% (2.5MG/ML) 10 ML VIAL ONE (14:33)
[2022-02-25] MEDS ORDERED: MIDAZOLAM HCL 2 MG/2 ML SINGLE DOSE VIAL ONE (14:41)
[2022-02-25] MEDS ORDERED: BUPIVACAINE HCL/PF 0.25% (2.5MG/ML) 10 ML VIAL IJ ONE ×4 (14:52→14:56)
[2022-02-25] MEDS ORDERED: ceFAZolin SODIUM 1 GM VIAL ONE (14:53)
[2022-02-25] MEDS ORDERED: ceFAZolin SODIUM 1 GM VIAL IVPB ONE (14:53)
[2022-02-25] MEDS ORDERED: PROPOFOL 20 ML ONE (15:02)
[2022-02-25] MEDS ORDERED: ONDANSETRON 4 MG/2 ML VIAL IVPUSH PRN (15:02)
[2022-02-25] MEDS ORDERED: oxyCODONE HCL 5 MG TABLET PO PRN (15:02)
[2022-02-25] MEDS ORDERED: LACTATED RINGERS SOLUTION 1,000 ML IV SCH (15:15)
[2022-02-25] MEDS ORDERED: BACITRACIN 15 GM TUBE TOPICAL OINTMENT ONE (16:11)
[2022-02-25] MEDS ORDERED: BACITRACIN 15 GM TUBE TOPICAL OINTMENT TP ONE (16:18)
[2022-02-25 17:51] VITALS: TEMP 97.5
[2022-02-25 18:39] VITALS: BP 166/68; PULSE 51
== END 2022-02-25 18:43 | disposition home or self-care (01) ==
LOC: JASU-SURG 04:27
PROVIDERS: ATTEND Plastic Surgery
PROC: 0HR1X73 Replacement of Face Skin with Autologous Tissue Substitute, Full Thickness, External Approach (ICD-10-PCS; 2022-02-25)
PROC: 0HB2XZZ Excision of Right Ear Skin, External Approach (ICD-10-PCS; 2022-02-25)
PROC: 0HR1X73 Replacement of Face Skin with Autologous Tissue Substitute, Full Thickness, External Approach (ICD-10-PCS; principal; 2022-02-25 14:00)
PROC: 0HB2XZZ Excision of Right Ear Skin, External Approach (ICD-10-PCS; 2022-02-25 14:00)
DX: C44.42 Squamous cell carcinoma of skin of scalp and neck (principal); C79.2 Secondary malignant neoplasm of skin; I10 Essential (primary) hypertension; E11.9 Type 2 diabetes mellitus without complications
CPT/HCPCS: 82962; 88305-TC; 88342-TC; 94760

== ENCOUNTER 2022-03-18 21:52 | Emergency (ER) | payer BC ==
[2022-03-18 22:25] VITALS: BP 144/81; PULSE 66; RESP 20; TEMP 98.4; BMI 19.8
[2022-03-18] MEDS ORDERED: SODIUM CHLORIDE 0.9% 500 ML INFUS.BAG IV ONE (23:13)
[2022-03-18 23:34] LABS: BASO % 0.6 % (0-2.0); HEMATOCRIT 39.5 % (35.4-49); HEMOGLOBIN 13.4 GM/dL (11.7-16.9); LYMPH % 38.2 % (8-40); MEAN CELL VOLUME 85.4 fl (80-96); MEAN PLT VOLUME 7.4 fl (7.5-11.1); NEUT % 57.2 % (42.8-82.8); PLATELET COUNT 208 10^3/uL (134-434); RBC 4.63 M/mm3 (4.00-5.60); RDW 14.9 % (11.9-15.9); WHITE BLOOD COUNT 16.6 K/mm3 (4.0-10.0)
[2022-03-18 23:58] LABS: CALCIUM 9.3 mg/dL (8.5-10.1)
[2022-03-18 23:59] LABS: ALBUMIN 3.6 g/dl (3.4-5.0); BLOOD UREA NITROGEN 26.1 mg/dL (7-18)
[2022-03-19 00:02] LABS: CREATININE 1.4 mg/dL (0.55-1.3)
[2022-03-19 00:03] LABS: BILIRUBIN,TOTAL 1.1 mg/dL (0.2-1)
[2022-03-19] MEDS ORDERED: SODIUM CHLORIDE 0.9% 500 ML INFUS.BAG IV ONE (00:06)
[2022-03-19 01:51] LABS: BASO % 0.2 % (0-2.0); EOS % 0.1 % (0-4.5); MCH 29.5 pg (25.7-33.7); MCHC 34.2 g/dl (32.0-35.9); MEAN CELL VOLUME 86.4 fl (80-96); MEAN PLT VOLUME 7.2 fl (7.5-11.1); MONO % 3.9 % (3.8-10.2); NEUT % 55.8 % (42.8-82.8); PLATELET COUNT 181 10^3/uL (134-434); RDW 14.8 % (11.9-15.9); WHITE BLOOD COUNT 15.6 K/mm3 (4.0-10.0)
[2022-03-19 01:55] LABS: BLOOD UREA NITROGEN 23.2 mg/dL (7-18); CALCIUM 8.6 mg/dL (8.5-10.1)
[2022-03-19 01:59] LABS: CREATININE 1.3 mg/dL (0.55-1.3)
== END 2022-03-19 02:47 | disposition home or self-care (01) ==
LOC: JER 21:52
DX: R19.7 Diarrhea, unspecified (principal)
CPT/HCPCS: 36415; 80048; 80053; 85025; 99283-25